=== PATIENT | male | born 1975 | race Caucasian/White ===

== ENCOUNTER 2024-12-10 08:42 | Emergency (ER) | payer OTHER ==
[~2024-12-10] VITALS: Ht 185.4 cm; Wt 122.5 kg
[~2024-12-10 08:42] MED LIST: CRUTCH4 XX; CYCL10 PO; HYDACE5 PO; IBUP800 PO; NAPR500 PO; Norco 5-325 Ta1 EACH PO; PRED10 PO; [UNRECOGNIZED DRUG - REMARK]
[2024-12-10 09:17] VITALS: BP 165/106
[2024-12-10] MEDS ORDERED: AMOCLA875 PO (09:55)
== END 2024-12-10 10:05 | disposition home or self-care (01) ==
LOC: ER 08:42
DX: S61.252A Open bite of right middle finger without damage to nail, initial encounter (principal); Z79.899 Other long term (current) drug therapy; F17.210 Nicotine dependence, cigarettes, uncomplicated; W53.11XA Bitten by rat, initial encounter
CPT/HCPCS: 73140; 99283-25; A9270